=== PATIENT | male | born 1990 | race American Indian/Alaskan Native ===

== ENCOUNTER 2020-08-19 06:53 | Day surgery (SDC) | payer OTHER ==
[~2020-08-19 06:53] MED LIST: Dextrose 5%-0.45% NaCl 1,000 ML IV SCH; Midazolam 1 MG/ML 2 ML SDV ONE; Sodium Chloride 0.9% 10 ML Syringe FLUSH PRN; fentaNYL 100 MCG/2 ML SDV ONE
[2020-08-19] MEDS ORDERED: Midazolam 1 MG/ML 2 ML SDV IV ONE ×7 (06:54→08:44)
[2020-08-19] MEDS ORDERED: fentaNYL 100 MCG/2 ML SDV IV ONE ×6 (06:54→08:48)
--- NOTE | 2020-08-19 12:42 | OR ---
DATE: 08/19/2020 PROCEDURE: Total colonoscopy. INSTRUMENT USED: [id number] Olympus video colonoscope. PREMEDICATIONS: Fentanyl 175 mcg intravenous, Versed 4 mg intravenous. The procedure was done under pulse oximetry, BP recording, and monitor tech. INDICATION: The patient with progressive constipation and rectal bleeding unexplained and not responsive to medical measures. Colonoscopic examination is done for detection of any polypoid lesions and removal, endoscopic hemostasis therapy if needed. DESCRIPTION OF PROCEDURE: Initial rectal exam was unremarkable. Rigid anoscopy showed small internal hemorrhoids without bleeding from them. The colonoscope was passed with ease up to the ileocecal area. Photographs were taken of the normal-appearing cecum identified by landmarks of appendiceal orifice and double- bulged ileocecal folds. No bleeding was noted from any of the visualized areas at the commencement of the examination. The bowel preparation was found to be adequate, Albertson scale 3 in right and transverse colon, 2 in left colon, total score 8. No stricture. No vascular ectasia. No large isolated ulcerations seen. No evidence of diffuse inflammatory bowel disease in the form of friability, contact bleeding, or ulcerations. No polyp or tumor mass identified. Probing the proximal sides of folds and flexures using adequate distention and clearing of the stool material, withdrawal of the scope was made, cecum to rectum time over 6 minutes. No bleeding was noted from any of the visualized areas at the completion of examination. IMPRESSION: Internal hemorrhoids. The patient tolerated the procedure well. [facility] /[id number]
== END 2020-08-19 11:00 | disposition home or self-care (01) ==
LOC: DL.ENDO 06:53
PROVIDERS: ATTEND Internal Medicine Gastroenterology
DX: K59.00 Constipation, unspecified (principal); K64.8 Other hemorrhoids; Z98.890 Other specified postprocedural states
CPT/HCPCS: 45378; J2250; J3010; J7042

== ENCOUNTER 2022-10-07 10:00 | Emergency (ER) | payer OTHER ==
[2022-10-07 10:43] LABS: ANION GAP 10.3 mEq/L (7-13)
[2022-10-07 10:58] LABS: CORONAVIRUS COVID-19 NAA NEGATIVE (NEGATIVE)
[2022-10-07] MEDS ORDERED: Sodium Chloride 0.9% 1,000 ML IV ONE (11:16)
[2022-10-07] MEDS ORDERED: Ketorolac 30 MG/ML SDV IVPUSH ONE (11:16)
[2022-10-07] MEDS ORDERED: Butorphanol 2 MG/ML SDV IVPUSH ONE (12:09)
== END 2022-10-07 12:48 | disposition home or self-care (01) ==
LOC: DL.ED 10:00
DX: G43.911 Migraine, unspecified, intractable, with status migrainosus (principal); Z91.048 Other nonmedicinal substance allergy status; Z20.822 Contact with and (suspected) exposure to COVID-19
CPT/HCPCS: 0240U; 36415; 80053; 83605; 84484; 85025; 93005; 96361; 96374; 96375; 99283; J0595; J1885; J7030